=== PATIENT | female | born 1950 | race Caucasian/White ===

== ENCOUNTER 2025-04-24 13:58 | Emergency (ER) | payer MEDICARE, OTHER, SELFPAY ==
[2025-04-24 14:19] VITALS: BP 112/57; PULSE 74; RESP 20; TEMP 36.6; O2SAT 100; BMI 28.7
--- NOTE | 2025-04-24 14:25 | DI.US.S_ITS ---
PROCEDURE: US PERIPH VENOUS LOW EXTREM LT INDICATIONS: pain LLE TECHNIQUE: Real-time imaging, as well as color and pulse Doppler interrogation, were performed of the lower extremity deep veins from the inguinal ligament to the popliteal fossa, with documentation of the visualized calf veins. COMPARISON: None. FINDINGS: The common femoral, femoral, popliteal, and the visualized calf veins are normally compressible, and free of intraluminal thrombus. Color and pulse Doppler demonstrate normal phasic intraluminal flow. There is normal augmentation response to distal compression maneuver. IMPRESSION: No findings of lower extremity deep venous thrombosis. Dictated by: Rudy Denny M.D. on 04/24/2025 at 15:21 Approved by: Rudy Denny M.D. on 04/24/2025 at 15:21
--- NOTE | 2025-04-24 14:29 | DI.RAD.S_ITS ---
PROCEDURE: XR KNEE LT 3V INDICATIONS: nontraumatic posterior L knee pain TECHNIQUE: 3 views of the knee were acquired. COMPARISON: None. FINDINGS: Bones: No acute fractures or dislocations. No suspicious bony lesions. Moderate joint space narrowing at the medial femorotibial compartment and patellofemoral compartment. Small tricompartmental marginal osteophytes. Soft tissues: No joint effusion. No suspicious soft tissue calcifications. IMPRESSION: Moderate tricompartmental osteoarthrosis. No acute osseous abnormality. Approved by: Noel Wall M.D. on 04/24/2025 at 15:39
--- NOTE | 2025-04-24 14:52 | ED_ITS ---
<Statement entered by Mike Patel, DO - 04/24/25 19:33> Dr. Jorge lewis statement: I was available for consultation during this patient's emergency department visit. This chart is signed by myself for administrative purposes only. I do not have direct contact with this patient during the visit. They were seen by the APC independently. HPI - Extremity Problem General Chief complaint: Extremity Problem,Nontraumatic Stated complaint: Pain in left leg x 2 weeks Time Seen by Provider: 04/24/25 14:46 Mode of arrival: Ambulatory History of Present Illness HPI Narrative: Ms. Parisi is a pleasant 74-year-old female with a past medical history of Lumbar radiculopathy, prediabetes, hypertension, who presents to the emergency department for left knee pain x2 weeks, sent by PCP for DVT rule out. Patient was seen by primary care provider on [facility] for nontraumatic left knee pain x2 weeks, there was no injury or fall that precipitated the pain. Pain is exacerbated by going up and down the stairs and is getting swollen in the middle of the night. No prior knee problems or injuries, no chest pain cough or shortness of breath. Sent to ER by PCP for DVT rule out. Patient states that she lives part-time on [facility], part-time in [place], she did fly here in February. No fevers, chills, redness or rashes of the leg. Pain is improved by taking a leave. Related Data Home Medications ?Medication ?Instructions ?Recorded ?Confirmed empagliflozin 25 mg tablet 25 mg PO DAILY 05/31/24 (Jardiance) ergocalciferol (vitamin D2) 1,250 1,250 mcg PO QWEEK 0 05/31/24 05/31/24 mcg (50,000 unit) capsule estradiol 0.5 mg tablet 0.5 mg PO DAILY 05/31/24 losartan 25 mg tablet 25 mg PO DAILY 05/31/2405/08 omeprazole 40 mg capsule,delayed 40 mg PO DAILY 05/31/24 release pramipexole 0.25 mg tablet 0.25 mg PO TID 05/31/24 semaglutide 2 mg/dose (8 mg/3 mL) 2 mg SUBCUT QWEEK 05/31/24 subcutaneous pen injector (Ozempic) vibegron 75 mg tablet (Gemtesa) 75 mg PO DAILY 4 05/31/24 Allergies Allergy/AdvReac Type Severity Reaction Status Date / Time aspirin AdvReac Intermediate Upset Verified 04/24/25 14:20 Stomach Review of Systems Review of Systems ROS Unobtainable: All systems reviewed & are unremarkable except as noted in HPI and below Patient History Social History Smoking Status: Never smoker Smoking Status: Never smoker Exam Narrative Exam Narrative: GENERAL: 74 year old patient appears stated age. Well-developed patient, in no acute distress. HEAD: Atraumatic. Normocephalic. NECK: Trachea midline. Cervical ROM intact. CARDIOVASCULAR: Regular rate RESPIRATORY: ?Nonlabored respirations. ?Speaking in clear, full sentences. ? EXTREMITIES: Strong DP and PT pulses bilaterally. Patient has subjective pain with flexion-extension of left knee. No edema, erythema or rashes. No calf tenderness. NEURO: AOx3. ?Clear speech. ?Moves all 4 extremities appropriately. SKIN: No rash or erythema of visible areas Initial Vital Signs Initial Vital Signs: Vital Signs Temperature 98 F 04/24/25 14:19 Pulse Rate 74 04/24/25 14:19 Respiratory Rate 20 04/24/25 14:19 Blood Pressure 112/57 L 04/24/25 14:19 Pulse Oximetry 100 04/24/25 14:19 Oxygen Delivery Method Room Air 04/24/25 14:19 Course Orders Ordered: ED Orders 04/24/25 14:25 US periph venous low extrem lt Stat 04/24/25 14:29 XR knee LT 3V Stat Vital Signs Vital signs: Vital Signs - 8 hr 04/24/25 14:19 04/24/25 16:10 Temperature 98 F Pulse Rate 74 79 Respiratory Rate 20 16 Blood Pressure 112/57 L 128/64 Pulse Oximetry 100 95 Oxygen Delivery Method Room Air Room Air MDM - Extremity (Nontraumatic) Medical Records Attestation: I reviewed the patient's medical records. Imaging Data LLE Venous US: Radiologist's Impression: PROCEDURE: US PERIPH VENOUS LOW EXTREM LT INDICATIONS: pain LLE TECHNIQUE: Real-time imaging, as well as color and pulse Doppler interrogation, were performed of the lower extremity deep veins from the inguinal ligament to the popliteal fossa, with documentation of the visualized calf veins. COMPARISON: None. FINDINGS: The common femoral, femoral, popliteal, and the visualized calf veins are normally compressible, and free of intraluminal thrombus. Color and pulse Doppler demonstrate normal phasic intraluminal flow. There is normal augmentation response to distal compression maneuver. IMPRESSION: No findings of lower extremity deep venous thrombosis. Dictated by: Rudy Denny M.D. on 04/24/2025 at 15:21 Approved by: Rudy Denny M.D. on 04/24/2025 at 15:21 Left Knee X-Ray: Radiologist's Impression: PROCEDURE: XR KNEE LT 3V INDICATIONS: nontraumatic posterior L knee pain TECHNIQUE: 3 views of the knee were acquired. COMPARISON: None. FINDINGS: Bones: No acute fractures or dislocations. No suspicious bony lesions. Moderate joint space narrowing at the medial femorotibial compartment and patellofemoral compartment. Small tricompartmental marginal osteophytes. Soft tissues: No joint effusion. No suspicious soft tissue calcifications. IMPRESSION: Moderate tricompartmental osteoarthrosis. No acute osseous abnormality. Approved by: Noel Wall M.D. on 04/24/2025 at 15:39 MDM Narrative Medical decision making narrative: 74-year-old female with a past medical history of Lumbar radiculopathy, prediabetes, hypertension, who presents to the emergency department for left knee pain x2 weeks, sent by PCP for DVT rule out. Differential diagnosis includes but is not limited to left lower extremity venous thrombosis, Holder cyst, knee sprain, strain, osteoarthritis, fracture, etc. On exam the patient is in no acute distress, nontoxic-appearing, all vital signs within normal limits. She is mild subjective pain of the left knee with flexion and extension, predominantly in the popliteal fossa, no erythema, edema, ecchymosis or calf tenderness, strong pulses are present and sensation is intact to light touch. Left knee x-ray and left lower extremity venous ultrasound ordered. Ultrasound reveals no findings of lower extremity deep venous thrombosis. X-ray reveals moderate tricompartmental osteoarthrosis with no acute osseous abnormality. Printed and discussed all results with the patient. Suspect her pain is related to osteoarthritis at this time and recommended supportive care, ibuprofen, acetaminophen, provided with Chidi wrap, rice therapy, topical Voltaren, follow up with Orthopedics. Discussed ED return precautions. Patient verbalized understanding of all information agreeable with the plan. She is stable for discharge home. Discharge Plan Departure Patient Disposition: Home Clinical Impression: Tricompartment osteoarthritis of left knee Instructions: DI for Osteoarthritis Activity Restrictions/Additional Instructions: Dear Ms. Parisi, Thank you for coming to the emergency department. Today the ultrasound of your left leg revealed no blood clots. Please use RICE therapy for your pain in addition to ibuprofen/acetaminophen. Rest the painful area. Ice the area of pain/swelling for at least 15 minutes, 4x a day. Compress the area of swelling using a brace, wrap, or splint if applied. Elevate the painful or swollen extremity by supporting it above the level of the heart with pillows when sitting or laying. Please take Ibuprofen (Motrin/Advil) or Acetaminophen (Tylenol) for pain. These are available over the counter. You may take Ibuprofen 600 mg every 8 hours with food for pain. You may also take Acetaminophen 650 mg every 4-6 hours for pain. Do not exceed 3000 mg of Tylenol a day as this can cause liver damage. Do not drink alcohol with either of these medications. Please follow up with your primary care doctor within the next 2-3 days for ER follow-up. (If you do not have a PCP you can call [phone]. ?to schedule an appointment with an [facility] Primary Care Provider) IF YOU DEVELOP ANY NEW OR WORSENING SYMPTOMS, RETURN TO THE ER! Please read the attached instructions, they highlight more specific treatments and interventions for you at home. Thank you for letting me participate in your care, Jasmin Slaughter PA-C Prescriptions: No Action estradiol 0.5 mg tablet 0.5 mg PO DAILY pramipexole 0.25 mg tablet 0.25 mg PO TID Gemtesa 75 mg tablet 75 mg PO DAILY losartan 25 mg tablet 25 mg PO DAILY ergocalciferol (vitamin D2) 1,250 mcg (50,000 unit) capsule 1,250 mcg PO QWEEK omeprazole 40 mg capsule,delayed release(DR/EC) 40 mg PO DAILY Jardiance 25 mg tablet 25 mg PO DAILY Ozempic 2 mg/dose (8 mg/3 mL) pen injector 2 mg SUBCUT QWEEK Referrals: Wei Rogers MD [Primary Care Provider, [facility]] Stand Alone Forms: Patient Portal/API
[2025-04-24 16:10] VITALS: BP 128/64; PULSE 79; RESP 16; O2SAT 95
== END 2025-04-24 16:10 | disposition home or self-care (01) ==
PROVIDERS: Emergency Provider Physician Assistant; Family Provider Family Medicine; PCP Family Medicine
DX: M17.12 Unilateral primary osteoarthritis, left knee (principal)
CPT/HCPCS: 73562; 93971; 99281; 99283